=== PATIENT | female | born 1970 | race Two or more races ===

== ENCOUNTER 2023-10-12 11:13 | Outpatient (AMB) | payer MEDICARE, MEDICAID, SELFPAY ==
--- NOTE | 2023-10-12 11:15 | A.OFFVIS_ITS ---
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 She is doing well with concerns: She reports vaginal bleeding and PCB for several years prior to Covid. She was seen at [facility] in the past for same concerns where a endometrial biopsy was attempted and patient was not able to cooperate due to it being uncomfortable and reports it was taking a long time to complete. Menopause in her 40's. Attempting to eat a healthy diet, takes a multipvitamin, and stays active with her family. Currently [facility] active [facility]. Last pap smear; uncertain date. Last mammogram; not up-to-date. Colonoscopy is UTD. Denies any family history of breast, ovarian or colon cancer. [facility], [facility] Medical History (Updated 10/12/23 @ 11:27 by Marisol Boyd CMA) Lactose intolerance Fibromyalgia IBS (irritable bowel syndrome) HTN (hypertension) Surgical History (Updated 10/12/23 @ 11:27 by Marisol Boyd CMA) Hx of cholecystectomy Hx of section Family History (Updated 10/12/23 @ 11:28 by Marisol Boyd CMA) Father HTN (hypertension) Mother HTN (hypertension) Diabetes Social History (Updated 10/12/23 @ 11:29 by Marisol Boyd CMA) Household Members: Spouse Household Members Other:: son Housing: Apartment Alcohol intake: never Patient Tobacco Use Status: Never used Tobacco Current occupational status: disabled Sexual orientation: Straight/Heterosexual Gender identity: Female Female Reproductive History Menstrual control method: none Total pregnancies: 4 Full term: 3 Number of Living Children: 3 Ab spontaneous: 1 Review of Systems Const All systems reviewed & are unremarkable except as noted in HPI and below Reports as per HPI Eyes Reports no additional complaints ENT Reports no additional complaints Card Reports no additional complaints Resp Reports no additional complaints GI Reports as per HPI and Reports no additional complaints Reports as per HPI Musc Reports no additional complaints Skin/Breast Reports as per HPI Neuro Reports no additional complaints Psych Reports no additional complaints Endo Reports no additional complaints Dima/Lymph Reports no additional complaints Aller/Immun Reports no additional complaints Physical Exam Vital Signs: Last Vital Signs BP 108/60 10/12/23 11:22 BMI result Body Mass Index 35.1 Const General: cooperative, healthy appearing, no acute distress, well developed and alert Orientation/consciousness: patient oriented x3 HEENT Head: Yes normal to inspection Eyes General: appearance normal, both eyes and all related structures Neck Neck: Yes normal visual inspection Thyroid: Thyroid normal Chest Chest palpation & inspection: normal inspection of the chest and other (no puckering, dimpling, peau de orange, retraction, discharge, masses) Breast/axilla inspection: normal inspection of the breasts Breast/axilla palpation: normal palpation of the breasts Resp Effort & Inspection: normal respiratory effort GI Inspection: Yes normal to inspection Palpation (GI): Soft to palpation Rectal Exam - Female: deferred General: Yes bladder normal to palpation External Female Exam: normal external appearance and normal appearance of the urethra Speculum Exam - Vagina: normal appearance of the vagina, normal palpation, normal vaginal discharge and vagina atrophic Speculum Exam - Cervix: normal appearance of the cervix and normal palpation Bimanual exam- vagina & uterus: normal bimanual exam, normal palpation, uterine size normal, bladder normal to palpation, normal palpation and non-tender Bimanual Exam- Adnexa, other: no masses Skin General skin exam: no rashes or lesions noted Rashes: no rashes Neuro General: patient oriented x3 Cognition (Neuro): normal cognition Extrem General: Yes normal to inspection Psych Attitude: cooperative Thought process: Normal thought process present Assessment & Plan Assessment & Plan (1) Encounter for well woman exam with routine gynecological exam: Code(s): Z01.419 - Encounter for gynecological examination (general) (routine) without abnormal findings (2) PMB (postmenopausal bleeding): Code(s): N95.0 - Postmenopausal bleeding Plan Discussed: Current recommendations for pap smears per ASCCP guidelines. Pap smear obtained today along with BV panel and GC chlamydia cultures. Breast awareness, periodic self breast exams and yearly mammogram. Maintain a healthy lifestyle, well balanced diet including Calcium 1,200 mg and Vitamin D 600 IU daily, and routine exercise. Workup for postmenopausal bleeding to include endometrial biopsy to rule out uterine cancer. Ultrasound to determine any structural changes including masses. Patient verbalizes understanding and agrees to the plan of care. She was given opportunity to ask questions and all questions were answered to the best of my ability. She is agreeable to schedule the endometrial biopsy appointment here in the office at her ultrasound follow up this will be done. Advised to take ibuprofen or Tylenol if no allergies 1 hour before the procedure with food and fluids. She was also informed that she could stop during the procedure any time and we could consider doing the procedure under anesthesia if needed. RTO in 1 year for annual bag bleacher exam. This note is constructed using voice recognition software. While every effort has been made to ensure accuracy, clinical laboratory director errors may have been included. Orders: Orders MM tomosynthesis screening BI Today Z12.31 - Encounter for screening mammogram for malignant neoplasm of breast US pelvic and transvaginal Today N95.0 - Postmenopausal bleeding
[2023-10-12 11:22] VITALS: BP 108/60; BMI 35.1
== END 2023-10-12 12:04 | disposition home or self-care (01) ==
LOC: HO.HWS 11:14
PROVIDERS: PCP Family Medicine; Visit Provider Advanced Practice Midwife
DX: N95.0 Postmenopausal bleeding (principal); Z01.419 Encounter for gynecological examination (general) (routine) without abnormal findings
CPT/HCPCS: 99213; G0101; Q0091

== ENCOUNTER 2023-10-12 11:13 | Outpatient (REF) | payer MEDICARE, MEDICAID, SELFPAY ==
[2023-10-13 09:47] LABS: CT PCR NOT DETECTED (Not Detect.); NG PCR NOT DETECTED (Not Detect.)
[2023-10-13 13:08] LABS: BV Int Neg Control Negative (Negative); BV Int Pos Control Positive (Positive)
[2023-10-18 09:03] LABS: HPV mRNA E6/E7 rflx Not Detected (Not Detected)
== END 2023-10-12 11:14 | disposition home or self-care (01) ==
LOC: HO.LNP 11:13
PROVIDERS: PCP Family Medicine; Visit Provider Advanced Practice Midwife
DX: Z01.419 Encounter for gynecological examination (general) (routine) without abnormal findings (principal); N95.0 Postmenopausal bleeding; Z20.2 Contact with and (suspected) exposure to infections with a predominantly sexual mode of transmission; Z12.39 Encounter for other screening for malignant neoplasm of breast
CPT/HCPCS: 0353U; 87480; 87510; 87624; 87660; 88142; 99212; G0101; Q0091

== ENCOUNTER 2023-10-30 10:45 | Outpatient (REF) | payer MEDICARE, MEDICAID, SELFPAY ==
--- NOTE | ~2023-10-30 | MM_ITS ---
EXAMINATION: MM SCREENING DIGITAL BREAST TOMOSYNTHESIS, BILATERAL CLINICAL INFORMATION: Screening. Asymptomatic. COMPARISON: Mammography: 06/10/2021, 03/11/2020, 04/26/2018 ([facility]) TECHNIQUE: Digital breast tomosynthesis is performed in both the craniocaudal and mediolateral oblique views along with computer-aided detection (CAD). Synthesized 2D images are generated from the tomosynthesis. FINDINGS: The breasts are heterogeneously dense, which may obscure small masses (ACR BI-RADS breast composition Category c). There are a few scattered benign type calcifications in both breasts. There are no suspicious masses, suspicious grouped calcifications, or areas of architectural distortion in either breast. The parenchymal pattern is stable from prior exams. No suspicious skin or axillary abnormalities. MM/MM tomosynthesis screening BI IMPRESSION: No mammographic evidence of malignancy. No significant interval change. ASSESSMENT: BI-RADS BI-RADS 2 - Benign Findings RECOMMENDATION: Routine annual mammography screening. 1 year F/U This examination should not preclude the clinical evaluation of a suspicious palpable abnormality. This patient's information was entered into a reminder system with a target due date for their next mammogram.
== END 2023-10-30 10:46 | disposition home or self-care (01) ==
LOC: HO.MAMMO 10:45
PROVIDERS: PCP Family Medicine; Visit Provider Advanced Practice Midwife
DX: Z12.31 Encounter for screening mammogram for malignant neoplasm of breast (principal)
CPT/HCPCS: 77063; 77067

== ENCOUNTER → 2023-10-30 10:45 | Outpatient (BNV) | payer MEDICARE, MEDICAID, SELFPAY | PROVIDERS: PCP Family Medicine; Visit Provider Radiology Diagnostic Radiology | DX: Z12.31 Encounter for screening mammogram for malignant neoplasm of breast (principal) | CPT/HCPCS: 77063; 77067 ==

== ENCOUNTER 2024-01-10 14:05 | Outpatient (REF) | payer OTHER, SELFPAY ==
--- NOTE | ~2024-01-10 | US_ITS ---
EXAMINATION: US PELVIS CLINICAL INFORMATION: Postmenopausal bleeding, 53-year-old. COMPARISON: None available. TECHNIQUE: Ultrasound of the pelvis is performed using both transabdominal and transvaginal transducers along with Doppler. Transvaginal imaging is performed due to inadequate visualization transabdominally. FINDINGS: Uterus: The uterus is anteverted and measures 11.0 x 3.9 x 5.1 cm. The double wall endometrial thickness is 5 mm. The uterus is smooth in contour and has normal myometrial echogenicity. Anterior uterine body intramural fibroid measures 2.3 cm. Adnexa: Both ovaries are visualized. There is normal color flow to the adnexa. There is no ovarian torsion. There is no pelvic ascites or fluid collection. Right ovary is not visualized. No large right adnexal mass. Left ovary measures 2.5 x 1.4 x 2.1 cm. US/US pelvic and transvaginal IMPRESSION: * Endometrial thickness is within normal limits for a postmenopausal patient measuring 5 mm. * Intramural uterine fibroid measures 2.3 cm. * Right ovary is not visualized. No large right adnexal mass.
== END 2024-01-10 14:06 | disposition home or self-care (01) ==
LOC: HO.US 14:05
PROVIDERS: PCP Family Medicine; Visit Provider Advanced Practice Midwife
DX: N95.0 Postmenopausal bleeding (principal)
CPT/HCPCS: 76830; 76856

== ENCOUNTER 2024-02-08 11:36 | Outpatient (AMB) | payer OTHER, SELFPAY ==
--- NOTE | 2024-02-08 11:41 | MHC.OFFVIS ---
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 She declines having the EMB today because she is going away this weekend and will return to the office next week. She reports pelvic pain, declines exam until next week. [facility] Medical History (Updated 02/08/24 @ 12:15 by Princess Duarte CNM) Lactose intolerance Fibromyalgia IBS (irritable bowel syndrome) HTN (hypertension) Surgical History (Updated 10/12/23 @ 11:27 by Marisol Boyd CMA) Hx of cholecystectomy Hx of section Family History (Updated 10/12/23 @ 11:28 by Marisol Boyd CMA) Father HTN (hypertension) Mother HTN (hypertension) Diabetes Social History (Updated 10/12/23 @ 11:29 by Marisol Boyd CMA) Household Members: Spouse Household Members Other:: son Housing: Apartment Alcohol intake: never Patient Tobacco Use Status: Never used Tobacco Current occupational status: disabled Sexual orientation: Straight/Heterosexual Gender identity: Female Review of Systems Const All systems reviewed & are unremarkable except as noted in HPI and below Endo Reports no additional complaints Physical Exam Vital Signs: Last Vital Signs BP 120/70 02/08/24 11:51 BMI result Body Mass Index 35.5 Const General: cooperative, healthy appearing and no acute distress Psych Appearance: well kempt Attitude: cooperative Thought process: Normal thought process present Results Reviewed Results Reviewed: [address] [address] Ultrasound Report Signed Patient: Adamaris Rodriguez MR#: [id number] : 1970 Acct:[id number] Age/Sex: 53 / F ADM Date: 01/10/24 Loc: HO.US Attending Dr: Princess Duarte CNM Ordering Physician: Princess Duarte CNM Date of Service: 01/10/24 Procedure(s): US pelvic and transvaginal Accession Number(s): [id number] cc: Jack Wilson MD; Princess Duarte CNM~ EXAMINATION: US PELVIS CLINICAL INFORMATION: Postmenopausal bleeding, 53-year-old. COMPARISON: None available. TECHNIQUE: Ultrasound of the pelvis is performed using both transabdominal and transvaginal transducers along with Doppler. Transvaginal imaging is performed due to inadequate visualization transabdominally. FINDINGS: Uterus: The uterus is anteverted and measures 11.0 x 3.9 x 5.1 cm. The double wall endometrial thickness is 5 mm. The uterus is smooth in contour and has normal myometrial echogenicity. Anterior uterine body intramural fibroid measures 2.3 cm. Adnexa: Both ovaries are visualized. There is normal color flow to the adnexa. There is no ovarian torsion. There is no pelvic ascites or fluid collection. Right ovary is not visualized. No large right adnexal mass. Left ovary measures 2.5 x 1.4 x 2.1 cm. US/US pelvic and transvaginal IMPRESSION: * Endometrial thickness is within normal limits for a postmenopausal patient measuring 5 mm. * Intramural uterine fibroid measures 2.3 cm. * Right ovary is not visualized. No large right adnexal mass. 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 Advised she come back soon for the endometrial biopsy to rule out any abnormal pathology including atypia, precancer and cancer. Anticipatory guidance for biopsy day was reviewed to include eating and drinking and taking 3 ibuprofen 1 hour before her biopsy. Counseled re: Leiomyoma: common pelvic neoplasm. Differential diagnosis-may include but not limited to- leiomyosarcoma which is a rare uterine sarcoma 3-7/100,000, difficult to distinguish from fibroids on ultrasound from uterine sarcoma's. Unlikely any single test will have a highly positive predictive value. Hysterectomy is not recommended for sole purpose of excluding malignant neoplasm. Consult for surgical exploration, medical treatment, other treatments, verses expectant management, pros and cons, risks and benefits. Expectant management follow up in 6 months, then yearly for stability. Ordered today for June. Referral to MD if indicated for level of care if indicated. Appointment for biopsy next week- patient is scheduled for 02/14/2024. All of her questions and concerns were addressed to the best of my ability and shared decision making. She is agreeable to the plan of care. This note is constructed using voice recognition software. While every effort has been made to ensure accuracy, business process engineer errors may have been included. Orders: Orders US pelvic and transvaginal 07/02/24 D21.9 - Benign neoplasm of connective and other soft tissue, unspecified Coding Level of Care Code Est Pt Level 3 (87738) Diagnoses Fibroid D21.9 Postmenopausal bleeding N95.0 Encounter to discuss test results Z71.2
[2024-02-08 11:51] VITALS: BP 120/70; BMI 35.5
== END 2024-02-08 12:14 | disposition home or self-care (01) ==
PROVIDERS: PCP Family Medicine; Visit Provider Advanced Practice Midwife
DX: D21.9 Benign neoplasm of connective and other soft tissue, unspecified (principal); N95.0 Postmenopausal bleeding; Z71.2 Person consulting for explanation of examination or test findings
CPT/HCPCS: 99213

== ENCOUNTER → 2024-02-08 11:36 | Outpatient (BNVA) | payer OTHER, SELFPAY | PROVIDERS: PCP Family Medicine; Visit Provider Advanced Practice Midwife | DX: Z71.2 Person consulting for explanation of examination or test findings (principal); N95.0 Postmenopausal bleeding; D21.9 Benign neoplasm of connective and other soft tissue, unspecified | CPT/HCPCS: 99212 ==

== ENCOUNTER 2024-04-24 11:19 | Outpatient (REF) | payer OTHER, SELFPAY | END 2024-04-24 11:20 | disposition home or self-care (01) | LOC: HO.LAB 11:19 | PROVIDERS: PCP Family Medicine; Visit Provider Advanced Practice Midwife | DX: N95.0 Postmenopausal bleeding (principal); D21.9 Benign neoplasm of connective and other soft tissue, unspecified | CPT/HCPCS: 58100; 88305 ==

== ENCOUNTER 2024-04-24 11:19 | Outpatient (AMB) | payer OTHER, SELFPAY ==
--- NOTE | 2024-04-24 11:23 | A.OFFVIS_ITS ---
Vital Signs 04/24/24 11:29 BP 114/78 Intake Visit Reasons: EMB Home Theater Experience Expert: Home Theater Experience Expert Present (Michelle) Allergies No Known Allergies Allergy (Verified 04/24/24 11:23) HPI Comments Details: Patient is here today for a endometrial biopsy due to a history of postmenopausal bleeding. [facility] Medical History (Updated 02/08/24 @ 12:15 by Princess Duarte CNM) Lactose intolerance Fibromyalgia IBS (irritable bowel syndrome) HTN (hypertension) Surgical History (Updated 10/12/23 @ 11:27 by Marisol Boyd CMA) Hx of cholecystectomy Hx of section Family History (Updated 10/12/23 @ 11:28 by Marisol Boyd CMA) Father HTN (hypertension) Mother HTN (hypertension) Diabetes Social History (Updated 10/12/23 @ 11:29 by Marisol Boyd CMA) Household Members: Spouse Household Members Other:: son Housing: Apartment Alcohol intake: never Patient Tobacco Use Status: Never used Tobacco Current occupational status: disabled Sexual orientation: Straight/Heterosexual Gender identity: Female Review of Systems Const All systems reviewed & are unremarkable except as noted in HPI and below Physical Exam Const General: cooperative, healthy appearing and no acute distress Orientation/consciousness: patient oriented x3 GI Inspection: Yes normal to inspection Palpation (GI): Soft to palpation and Other GI palpation findings present (Nontender) Rectal Exam - Female: visual inspection normal General: Yes bladder normal to palpation External Female Exam: normal appearance of the urethra Speculum Exam - Vagina: normal appearance of the vagina, normal palpation and normal vaginal discharge Speculum Exam - Cervix: normal appearance of the cervix and normal palpation Bimanual exam- vagina & uterus: normal bimanual exam, normal palpation, uterine size normal, bladder normal to palpation, normal palpation, uterine shape normal and non-tender Bimanual Exam- Adnexa, other: normal adnexae Neuro General: patient oriented x3 Office Procedures Endometrial Biopsy Details: The patient is here today for an endometrial biopsy due to PMB to rule out any pathology including atypical, hyperplasia or cancer cells of the uterus. She was counseled regarding anticipatory guidance for the procedure including the risks for pain, infection, bleeding, perforation, potential injury to the tissues may include the cervix, uterus, tubes, bladder and bowels. These injuries may include further treatment and evaluation including surgery, blood transfusions, antibiotics, hospitalizations and anesthesia. Permanent injury and scarring can occur. She was consented for the procedure, and the consent forms were signed. She is agreeable to have the procedure today. All questions were answered. Endometrial Biopsy Procedure: The patient was placed in the dorsal lithotomy position and a sterile speculum inserted. Using aseptic technique for the procedure. The cervix was cleansed with Betadine x 3 swabs. A single toothed tenaculum was placed on the cervix for stabilization and the uterus was sounded to 9 cm with a 4mm pipelle, and tissue sample obtained. Minimal bleeding was observed. The tissue sample was placed in formalin in a patient labeled container by staff assisting and sent to the pathology department for processing and interpretation. The patient tolerate the procedure well and was in good condition when leaving the department. Endometrial Biopsy Post Procedure Care: Nothing in the vagina including: tampons, douching or intimacy until all the bleeding has subsided. There may be some post procedure bleeding for several days, this bleeding is usually light and may turn to a light brown or pink color. Mild cramps may occurs. Nothing in the vaginal including: tampons, douching, or intimacy until all the bleeding has subsided. You may take an over the counter mild analgesic such as Tylenol or Advil (if no allergies) per the manufactures recommendation on dosing, frequency, and follow the directions completely. Call the office if any: fever (over 100.4), flu like symptoms, abdominal pain (worse than cramping), foul smelling, infected appearing vaginal discharge, or heavy bleeding. If indicated: Use condoms to prevent and STI's, and only after the bleeding has stopped completely. Return to the office in 2 weeks for results and plan of care. This note is constructed using voice recognition software. While every effort has been made to ensure accuracy, organ pipe maker metal errors may have been included. [id number] Biopsy Assessment & Plan Assessment & Plan (1) Postmenopausal bleeding: Code(s): N95.0 - Postmenopausal bleeding Category: Medical Plan: See procedure notes. Return to the office in 2 weeks for results appointment. All of her questions and concerns were addressed to the best of my ability and shared decision making. She is agreeable to the plan of care. This note is constructed using voice recognition software. While every effort has been made to ensure accuracy, organ pipe maker metal errors may have been included. Coding Level of Care Code Procedure Only Diagnoses Postmenopausal bleeding N95.0 CPT Codes Endometrial Biopsy - CPT: 51743-[id number] Biopsy ([id number])
[2024-04-24 11:29] VITALS: BP 114/78
== END 2024-04-24 12:01 | disposition home or self-care (01) ==
LOC: HO.HWS 11:19
PROVIDERS: PCP Family Medicine; Visit Provider Advanced Practice Midwife
DX: N95.0 Postmenopausal bleeding (principal)
CPT/HCPCS: 58100